=== PATIENT | female | born 1985 | race African-American/Black ===

== ENCOUNTER 2018-06-08 06:38 | Day surgery (SDC) | payer OTHER ==
[2018-06-08 07:12] LABS: AMORPHOUS SEDIMENT SMALL (NEGATIVE); APPEARANCE, URINE HAZY (CLEAR); BACTERIA, URINE AUTO 3+ (NEGATIVE); BILIRUBIN, URINE AUTO NEGATIVE (NEGATIVE); BLOOD, URINE BLOOD 3+ (NEGATIVE); COLOR, URINE YELLOW (YELLOW); GLUCOSE, URINE (UA) AUTO NEGATIVE (NEGATIVE); KETONE, URINE AUTO NEGATIVE (NEGATIVE); LEUKOCYTE ESTERASE, URINE AUTO 2+ (NEGATIVE); NITRITE, URINE AUTO NEGATIVE (NEGATIVE); PROTEIN, URINE AUTO NEGATIVE (NEGATIVE); RBC, URINE AUTO 19 /HPF (0-3); SPECIFIC GRAVITY URINE AUTO 1.013 (1.002-1.035); SQUAMOUS EPITHELIAL CELL UR AU 0 /HPF (0-6); UROBILINOGEN, URINE AUTO 0.2 mg/dL (0.0-2.0); WBC, URINE AUTO 27 /HPF (0-3)
[2018-06-08] MEDS ORDERED: PROPOFOL 200 MG/20 ML VIAL As Ordered ×2 (07:14→08:03)
[2018-06-08] MEDS ORDERED: LIDOCAINE 2% INJ 100 MG/5 ML SDV (FOR ANES.) As Ordered (07:14)
[2018-06-08] MEDS ORDERED: MIDAZOLAM INJ 2 MG/2 ML VIAL (J2250) As Ordered (07:16)
[2018-06-08] MEDS ORDERED: fentaNYL 100 MCG/2 ML INJECTION (J3010) As Ordered (07:16)
[2018-06-08 07:17] LABS: HEMATOCRIT 36.5 % (36.0-47.0); HEMOGLOBIN 12.4 g/dl (12.0-15.5); MEAN CORPUSCULAR HEMOGLOBIN 27.7 pg (27.0-33.0); MEAN CORPUSCULAR VOLUME 81.7 fl (80.0-96.0); PLATELET COUNT, AUTOMATED 257 10^3/uL (150-450); RED BLOOD COUNT 4.47 10^6/uL (4.00-5.40); RED CELL DISTRIBUTION WIDTH 11.9 % (11.5-14.5); WHITE BLOOD COUNT 5.2 10^3/uL (4.0-10.0)
[2018-06-08] MEDS: LR 1,000 ML IV (07:20)
[2018-06-08 07:40] LABS: CONTROL LINE HCG INT CTR LINE PRESENT; HCG, SERUM QUALITATIVE NEGATIVE (NEGATIVE)
[2018-06-08] MEDS ORDERED: ONDANSETRON 4MG/2ML VIAL (J2405) As Ordered (08:03)
[2018-06-08] MEDS ORDERED: KETOROLAC 60 MG/2 ML VIAL (J1885) As Ordered (08:03)
[2018-06-08] MEDS ORDERED: dexameTHASONE 4 MG/ML 1ML VIAL (J1100) As Ordered ×2 (08:04)
[2018-06-08] MEDS ORDERED: METOCLOPRAMIDE INJ 10MG/2ML VIAL (J2765) As Ordered (08:04)
[2018-06-08] MEDS: IODINE STRONG SOLN 15 ML BTL As Ordered (08:28)
[2018-06-08] MEDS: LIDOCAINE W/EPINEPHRINE 1% 20ML VIAL As Ordered (08:30)
[2018-06-08] MEDS ORDERED: ONDANSETRON 4MG/2ML VIAL (J2405) IV (09:15)
[2018-06-08] MEDS ORDERED: fentaNYL 100 MCG/2 ML INJECTION (J3010) IV (09:15)
[2018-06-08] MEDS ORDERED: MEPERIDINE INJ 25 MG/ML VIAL (J2175) IV (09:15)
[2018-06-08] MEDS ORDERED: LR 1,000 ML IV (09:15)
[2018-06-08] MEDS ORDERED: PERCOCET 5MG/325MG TAB PO (09:15)
[2018-06-08] MEDS ORDERED: IBUPROFEN 800 MG TAB PO (09:15)
== END 2018-06-08 09:57 | disposition home or self-care (01) ==
LOC: M SDC 06:38
DX: R87.613 High grade squamous intraepithelial lesion on cytologic smear of cervix (HGSIL) (principal); R51 Headache; D57.3 Sickle-cell trait; Z98.82 Breast implant status
CPT/HCPCS: 57522